=== PATIENT | female | born 2000 | race Hispanic/Latino ===

== ENCOUNTER 2022-03-15 15:24 | Emergency (ER) | payer OTHER, SELFPAY ==
[2022-03-15 15:35] VITALS: BP 123/73; PULSE 90; RESP 16; TEMP 37.3; O2SAT 99
--- NOTE | 2022-03-15 16:09 | ED.URI ---
HPI - URI/Sore Throat General Chief Complaint: Upper Respiratory Infection Stated Complaint: sore throat Time Seen by Provider: 03/15/22 16:09 Source: patient, RN notes reviewed and old records reviewed Mode of arrival: ambulatory Limitations: no limitations History of Present Illness HPI Narrative: 21-year-old female presents to the [facility] with complaints of a sore throat for couple of weeks, worse over the last 3 days. Has used cold medicine but nothing recently. Does not own a thermometer unsure of fevers. Related Data Allergies Allergy/AdvReac Type Severity Reaction Status Date / Time strawberry Allergy Unknown Unknown Unverified 03/15/22 16:04 Review of Systems Review of Systems: All systems reviewed & are unremarkable except as noted in HPI and below Constitutional: Constitutional: Reports no additional constitutional complaints Eyes: Eyes: Reports no additional eye complaints ENT: Reports as per HPI and Reports sore throat Cardiovascular: Cardiovascular: Reports no additional cardiovascular complaints, Denies chest pain and Denies dyspnea Respiratory: Respiratory: Reports no additional respiratory complaints, Denies chest congestion, Denies cough and Denies dyspnea Gastrointestinal: Gastrointestinal: Reports no additional gastrointestinal complaints, Denies abdominal pain, Denies nausea and Denies vomiting Musculoskeletal: Musculoskeletal: Reports no additional musculoskeletal complaints Integumentary/Breasts: Skin/Breast: Reports system reviewed and no additional complaints, except as docu Neurologic: Reports system reviewed and no additional complaints, except as documented Psychiatric: Psychiatric: Reports no additional psychiatric complaints Allergic/Immunologic: Allergic/Immunologic: Reports no additional allergic/immunologic complaints PMFSH Comments At the time of my signature, I reviewed and agree with the nursing past medical, surgical, social, and family history. There is no relevant family history pertinent to the patient complaint. Exam Const: General: cooperative, no acute distress, well developed, alert, ill appearing (mild), poor hygiene, uncomfortable and well nourished Nutritional Appearance: well nourished Orientation/consciousness: patient oriented x3 Limitations: no limitations HENMT: Head: normal to inspection Ears: hearing grossly normal bilaterally and external ears normal Face/Nose/Sinus: Normal external nose present, Normal nares present, Normal nasal mucous membranes and turbinates present and normal facial exam Face and sinus: normal facial exam Mouth: Yes Normal oral and palatal mucosa present, Yes lip normal and Yes moist mucous membranes Throat: uvula midline, abnormal tonsil bilateral erythema, exudates and hypertrophy 2+ and posterior oropharynx abnormal erythema; no edema and no exudates Eyes: General: appearance normal, both eyes and all related structures Alignment and Position: alignment normal Periorbital: periorbital findings normal Conjunctivae: conjunctivae normal Pupils: Equal, round and reactive pupils present EOM: EOMs intact bilaterally Neck: Neck: normal visual inspection, full ROM, no meningeal signs and lymphadenopathy (Bilateral submandibular) Chest: Chest palpation & inspection: normal inspection of the chest Resp: Effort & Inspection: normal respiratory effort and able to speak in complete sentences Auscultation: clear to auscultation bilaterally, no crackles, no rales, no rhonchi and no wheezes Cardio: Rate: regular rate Rhythm: regular rhythm Back/Spine/Pelvis: Cervical Spine: cervical ROM normal Thoracic/Lumbar Spine: No thoracic spinal tenderness Skin: General skin exam: normal color and no rashes or lesions noted Lesions: no lesions Rashes: no rashes Wounds: no wounds Neuro: General: patient oriented x3, gait normal, tone normal, moves all extremities and no meningeal signs Cranial nerves: Yes Equal, round and reactive pupils present
== END 2022-03-15 16:25 | disposition home or self-care (01) ==
PROVIDERS: Emergency Provider Nurse Practitioner
DX: J03.90 Acute tonsillitis, unspecified (principal)
CPT/HCPCS: 87070; 99213; G0463

== ENCOUNTER 2022-10-29 17:53 | Emergency (ER) | payer OTHER, SELFPAY ==
[2022-10-29] VITALS (10 sets, daily range): BP systolic 122–132; BP diastolic 75–84; PULSE 74–94; RESP 15–20; TEMP 36.4; O2SAT 98–100
--- NOTE | ~2022-10-29 | CT_ITS ---
EXAMINATION: CT abdomen pelvis w con DATE: 10/29/2022 19:03 INDICATION: RLQ pain, nausea TECHNIQUE: Computed tomography (CT) of the abdomen and pelvis was performed with 100 mL Omnipaque-350 intravenous contrast. Automated exposure control and iterative reconstruction technique were employe d. The dose-length product was 908.95 mGy-cm. COMPARISON: 08/22/2009. FINDINGS: Lower thorax: Unremarkable Liver: Normal. Biliary/Gallbladder: Gallbladder is normal. No bile duct dilation. Pancreas: No mass or duct dilation. Spleen: Normal. Adrenals:No mass. Kidneys: No mass, stone, or hydronephrosis. GI tract: No small or large bowel dilation. Normal appendix. Mesentery/Peritoneum: No ascites, mass, or free air. Retroperitoneum: No mass. Pelvis: Pelvic organs are within normal limits. Soft Tissues: Soft tissues and body wall unremarkable. Bones: No acute osseous finding. IMPRESSION: No acute abdominopelvic process detected Reviewed, dictated and finalized at location K.
--- NOTE | 2022-10-29 18:10 | ED.ABDPAIN ---
HPI - Abdominal Pain General Chief Complaint: Abdominal Pain Stated Complaint: right side pain Time Seen by Provider: 10/29/22 18:04 History of Present Illness HPI narrative: Patient is a 22-year-old female presenting with abdominal pain. Patient states that she developed right lower quadrant pain approximately 1 week ago. States that it seemed to improve and then it came back several days ago. States that it has progressively worsened. States that now it is coming and going. Associated with nausea and decreased appetite. States that she thinks she has been constipated but she did have a bowel movement this morning. No chest pain or shortness of breath. No fevers or cough. No dysuria, hematuria, vaginal discharge. LMP approximately 2 weeks ago. Denies further complaints. Related Data Allergies Allergy/AdvReac Type Severity Reaction Status Date / Time strawberry Allergy Unknown Unknown Verified 10/29/22 18:05 amoxicillin AdvReac Rash Verified 10/29/22 18:05 red dye AdvReac Rash Verified 10/29/22 18:05 Review of Systems Review of Systems: All systems reviewed & are unremarkable except as noted in HPI and below Exam Narrative: GENERAL: Well-appearing, well-nourished, and in no acute distress. HEAD: Normocephalic, atraumatic. EYES: PERRLA and EOMI. ENT: Nares clear, no rhinorrhea or epistaxis. Mucous membranes moist. NECK: Supple. CHEST: Clear to auscultation. No respiratory distress. HEART: Regular rate and rhythm ABDOMEN: Soft, +RLQ tenderness, no guarding or rebound EXTREMITIES: Normal range of motion. No edema. SKIN: Warm, dry, no rash. NEURO: No focal deficits. Alert and oriented x3. PSYCH: Normal mood and affect. Course Vital Signs Vital signs: Vital Signs Temperature 97.6 F 10/29/22 17:57 Pulse Rate 88 10/29/22 17:57 Respiratory Rate 16 10/29/22 17:57 Blood Pressure 132/84 10/29/22 17:57 Pulse Oximetry 98 10/29/22 17:57 Oxygen Delivery Room Air 10/29/22 17:57 Temperature 97.6 F 10/29/22 17:57 Pulse Rate 78 10/29/22 19:31 Respiratory Rate 16 10/29/22 19:31 Blood Pressure 124/75 10/29/22 19:31 Pulse Oximetry 99 10/29/22 19:31 Oxygen Delivery Room Air 10/29/22 17:57 MDM - Abdominal Pain MDM Narrative Medical decision making narrative: Patient is a 22-year-old female presenting with right lower quadrant pain. Vitals within normal limits. Exam remarkable for the above. Patient is declining pain meds or antiemetics at this time Blood work is unremarkable. UA is unremarkable. CT abdomen pelvis with no acute findings. On reevaluation, the patient is resting comfortably. Feel she is safe for outpatient management. We will get her started on some MiraLAX for the constipation. Advised following up with PCP. Appropriate return precautions given. Patient voiced understanding and is agreeable with plan. Discharged in stable condition. Differential Diagnosis Differential diagnosis: Likely abdominal pain, acute appendicitis, constipation, gastroenteritis and pancreatitis Medical Records Attestation: I reviewed the patient's medical records. Lab Data Attestation: I reviewed the patient's lab results. 10/29/22 18:05 10/29/22 18:05 Labs: Lab Results 10/29/22 10/29/22 Range/Units 18:05 18:18 WBC 9.5 (4.5-10.0) K/mm3 RBC 4.31 (4.2-5.4) M/mm3 Hgb 13.3 (12.0-15.0) g/dL Hct 37.9 (37.0-47.0) % MCV 87.9 (80-100) fl MCH 30.9 (26-34) pg MCHC 35.1 (32-36) g/dl RDW 12.3 (11.5-14.5) % Plt Count 229 (150-375) k/mm3 MPV 10.4 (7.4-10.4) fl Immature Gran % (Auto) 0.3 (0-0.5) % Neut % (Auto) 61.7 (45.5-73.1) % Lymph % (Auto) 28.9 (18.3-44.2) % [place] % (Auto) 6.4 (2.6-8.5) % Eos % (Auto) 2.2 (0-4.4) % Baso % (Auto) 0.5 (0.2-1.2) % Lymph # (Auto) 2.76 (0.9-3.2) K/mm3 [place] # (Auto) 0.6 (0.1-0.6) K/mm3 Eos # (Auto) 0.2 (0-0.3) K/mm3 Baso # (Auto) 0.1 (0.0-0.1)
[2022-10-29 18:11] LABS: Basophils Absolute Auto 0.1 K/mm3 (0.0-0.1); Basophils Percent Auto 0.5 % (0.2-1.2); Eosinophils Absolute Auto 0.2 K/mm3 (0-0.3); Eosinophils Percent Auto 2.2 % (0-4.4); Hematocrit 37.9 % (37.0-47.0); Hemoglobin 13.3 g/dL (12.0-15.0); Immature Granulocyte Absolute 0.03 K/mm3 (0.00-0.031); Immature Granulocyte Percent A 0.3 % (0-0.5); Lymphocytes Absolute Auto 2.76 K/mm3 (0.9-3.2); Lymphocytes Percent Auto 28.9 % (18.3-44.2); Mean Corpuscular HGB Conc 35.1 g/dl (32-36); Mean Corpuscular Hemoglobin 30.9 pg (26-34); Mean Corpuscular Volume 87.9 fl (80-100); Mean Platelet Volume 10.4 fl (7.4-10.4); Monocytes Absolute Auto 0.6 K/mm3 (0.1-0.6); Monocytes Percent Auto 6.4 % (2.6-8.5); Neutrophils Absolute Auto 5.9 K/mm3 (1.3-6.7); Neutrophils Percent Auto 61.7 % (45.5-73.1); Platelet Count Result 229 k/mm3 (150-375); Red Blood Count 4.31 M/mm3 (4.2-5.4); Red Cell Distribution Width 12.3 % (11.5-14.5); White Blood Count 9.5 K/mm3 (4.5-10.0)
[2022-10-29] MEDS: ONDANSETRON INJ 4 MG/2 ML VIAL IV PUSH (18:16)
[2022-10-29] MEDS: LACTATED RINGERS 1,000 ML 999 ML IV CONT (18:16)
[2022-10-29 18:25] LABS: Appearance Urine Clear (Clear); Bilirubin Urine Negative (Negative); Blood Urine Negative (Negative); Color Urine Yellow (Yellow); Glucose Urine UA Negative (Negative); Ketones Urine Negative (Negative); Leukocyte Esterase Ur Negative LEU/UL (Negative); Nitrate Urine Negative (Negative); Protein Urine Negative (Negative); Specific Grav Ur 1.013 (1.001-1.035); Urobilinogen Urine 0.2 mg/dL (<2.0)
[2022-10-29 18:33] LABS: Add Urine Microscopic? NO
[2022-10-29 18:35] LABS: Alanine Aminotransferase 21 U/L (6-35); Albumin Level 4.5 g/dL (3.5-5.1); Alkaline Phosphatase 88 U/L (38-126); Anion Gap 7 mmol/L (8-16); Aspartate Amino Transferase 27 U/L (14-36); Bilirubin,Total 0.4 mg/dL (0.2-1.3); Blood Urea Nitrogen 9 mg/dL (7-17); Carbon Dioxide 29 mmol/L (22-30); Chloride 103 mmol/L (98-107); Estimated CRCL calculation 117 ml/min; Estimated Glomerular Filt Rate > 60; Glucose 98 mg/dL (65-110); Lipase 61 U/L (23-300); Potassium 3.7 mmol/L (3.4-5.0); Sodium 139 mmol/L (137-145)
== END 2022-10-29 20:01 | disposition home or self-care (01) ==
PROVIDERS: Emergency Medicine; Emergency Provider Emergency Medicine
DX: R10.31 Right lower quadrant pain (principal)
CPT/HCPCS: 36415; 74177; 80053; 81003; 81025; 83690; 85025; 96361; 96374; 99284; J2405; J7120; Q9967

== ENCOUNTER 2022-12-01 11:26 | Emergency (ER) | payer OTHER, SELFPAY ==
[2022-12-01 11:42] VITALS: BP 116/67; PULSE 82; RESP 14; TEMP 36.9; O2SAT 100
--- NOTE | 2022-12-01 12:04 | ED.URI ---
HPI - URI/Sore Throat General Chief Complaint: Ear Stated Complaint: both ears painful Time Seen by Provider: 12/01/22 12:00 Source: patient and RN notes reviewed Mode of arrival: ambulatory Limitations: no limitations History of Present Illness HPI Narrative: Patient presents today complaining of rhinorrhea, sore throat, and bilateral ear pain, right greater than left, since yesterday with cough that started today. Hearing is normal. Currently rates her ear pain 2/10 and has been taking Advil with some relief. Related Data Allergies Allergy/AdvReac Type Severity Reaction Status Date / Time strawberry Allergy Unknown Unknown Verified 12/01/22 12:02 amoxicillin AdvReac Rash Verified 12/01/22 12:02 red dye AdvReac Rash Verified 12/01/22 12:02 Review of Systems Review of Systems: CONSTITUTIONAL: Denies body aches, fever, chills, or sweats. EYES: Denies visual changes, redness, or discharge. ENT: + rhinorrhea, congestion, sore throat, bilateral ear pain CARDIOVASCULAR: Denies chest pain, palpitations, or edema. RESPIRATORY: Denies dyspnea.+ cough GASTROINTESTINAL: Denies abdominal pain, nausea, vomiting, or diarrhea. GENITOURINARY: Denies dysuria or hematuria. SKIN: Denies rash, itching, or wounds. MUSCULOSKELETAL: Denies back pain, joint pain, or myalgia. NEUROLOGIC: Denies headache, numbness, tingling, or weakness. PSYCH: Denies depression or anxiety. PMFSH Comments At time of signature, I have reviewed and agree with nursing past medical, surgical, social and family history unless otherwise noted. Please see nursing chart for further information. There is no relevant family history pertinent to the presenting complaint Exam Narrative: GENERAL: Well-appearing, well-nourished, and in no acute distress. HEAD: Normocephalic, atraumatic. EYES: EOMI. No redness or drainage. Conjunctivae normal. ENT: Mucous membranes pink and moist. Nares congested with rhinorrhea. Left TM normal. Right TM erythematous and bulging. Throat normal. Uvula midline. NECK: Normal AROM. Supple. No lymphadenopathy. CHEST: No respiratory distress. Clear to auscultation. HEART: Regular rate and rhythm. No murmur appreciated. Normal peripheral pulses. EXTREMITIES: Normal range of motion. No edema. SKIN: Warm, dry, no rash. Capillary refill normal. Normal skin turgor. NEURO: No focal deficits. Alert and oriented x3. Gait steady. PSYCH: Normal affect. No signs of depression or anxiety. Course Course Level of Care: Express Care Visit Vital Signs Vital signs: Vital Signs Temperature 98.4 F 12/01/22 11:42 Pulse Rate 82 12/01/22 11:42 Respiratory Rate 14 12/01/22 11:42 Blood Pressure 116/67 12/01/22 11:42 Pulse Oximetry 100 12/01/22 11:42 Oxygen Delivery Room Air 12/01/22 11:42 Temperature 98.4 F 12/01/22 11:42 Pulse Rate 82 12/01/22 11:42 Respiratory Rate 14 12/01/22 11:42 Blood Pressure 116/67 12/01/22 11:42 Pulse Oximetry 100 12/01/22 11:42 Oxygen Delivery Room Air 12/01/22 11:42 Reviewed MDM - URI/Sore Throat MDM Narrative Medical decision making narrative: Exam consistent with an upper respiratory infection with right otitis media. Will treat with Omnicef. Discussed [id number] treatment as well. No testing indicated at this time. Anticipatory guidance given. Differential Diagnosis Differential diagnosis: Likely upper respiratory infection, otitis media, viral infection and pharyngitis Critical Care Time Critical Care Time Critical Care Time: No Discharge Plan Discharge Clinical Impression: Acute right otitis media Upper respiratory infection Qualifiers: URI type: unspecified URI Qualified Code(s): J06.9 - Acute upper respiratory infection, unspecified Patient Disposition: Home, Self-Care Condition: Stable Instructions: Antibiotic Form, Ear Infection (GEN), Upper Respiratory Infection (DC) Additional Instructions: You have been diagnosed with
== END 2022-12-01 12:12 | disposition home or self-care (01) ==
PROVIDERS: Emergency Provider Nurse Practitioner
DX: H66.91 Otitis media, unspecified, right ear (principal); J06.9 Acute upper respiratory infection, unspecified
CPT/HCPCS: 99213; G0463

== ENCOUNTER 2024-05-02 13:26 | Emergency (ER) | payer SELFPAY ==
--- NOTE | 2024-05-02 13:34 | ED_ITS ---
HPI - URI/Sore Throat General Chief Complaint: Upper Respiratory Infection Stated Complaint: SOB,cough,bodyaches Source: patient, RN notes reviewed and old records reviewed Mode of arrival: ambulatory Limitations: no limitations History of Present Illness HPI Narrative: Patient presents with complaints of headache, body ache, cough, sore throat. She has not been taking anything for her symptoms. She is not in any distress,. She denies any fever, chills, sweats. She denies any injury Related Data Allergies Allergy/AdvReac Type Severity Reaction Status Date / Time strawberry Allergy Unknown Unknown Verified 05/02/24 14:09 amoxicillin AdvReac Rash Verified 05/02/24 14:09 red dye AdvReac Rash Verified 05/02/24 14:09 Review of Systems Review of Systems: All systems reviewed & are unremarkable except as noted in HPI and below Constitutional: Constitutional: Reports no additional constitutional complaints, Reports body ache(s) and Reports headache(s) ENT: Reports system reviewed and no additional complaints, except as documented and Reports sore throat Cardiovascular: Cardiovascular: Reports no additional cardiovascular complaints Respiratory: Respiratory: Reports no additional respiratory complaints and Reports cough Gastrointestinal: Gastrointestinal: Reports no additional gastrointestinal complaints PMFSH Comments At the time of my signature, I reviewed and agree with the nursing past medical, surgical, social, and family history. There is no relevant family history pertinent to the patient complaint. Exam Const: General: cooperative, no acute distress, alert and awake Orientation/consciousness: oriented to person, oriented to place and oriented to time HENMT: Head: normal to inspection Ears: TM's normal bilaterally Mouth: Yes moist mucous membranes Throat: posterior oropharynx abnormal erythema Resp: Effort & Inspection: normal respiratory effort and able to speak in complete sentences Auscultation: clear to auscultation bilaterally, no crackles, no rales, no rhonchi and no wheezes Cardio: Palpation: normal PMI Rate: regular rate Rhythm: regular rhythm Heart sounds: S1 normal heart sound present and S2 normal heart sound present Neuro: General: oriented to person, oriented to place and oriented to time Cranial nerves: Yes CN's II-XII intact bilaterally Psych: Appearance: grossly normal Thought process: Normal thought process present Insight: Good insight present (Psych) Judgement: Good judgement present (Psych) Course Course Level of Care: Express Care Visit Vital Signs Vital signs: Reviewed MDM - URI/Sore Throat MDM Narrative Medical decision making narrative: Negative COVID, negative flu, negative strep. Culture pending. Reassuring physical exam. Heart rate 90 on auscultation. Symptoms likely viral in origin Differential Diagnosis Differential diagnosis: Likely upper respiratory infection, viral infection, influenza and pharyngitis Medical Records Attestation: I reviewed the patient's medical records. Lab Data Attestation: I reviewed the patient's lab results. Discharge Plan Discharge Clinical Impression: Upper respiratory infection Qualifiers: URI type: unspecified viral URI Qualified Code(s): J06.9 - Acute upper respiratory infection, unspecified Patient Disposition: Home, Self-Care Condition: Stable Instructions: Antibiotic Form, Cold Symptoms (ED) Additional Instructions: Take [id number] medications. Follow with primary care provider. Emergency department for new or worse symptoms Patient Language: Green[place]ic Prescriptions: No Action cefdinir 300 mg capsule 300 mg PO Q12H 7 Days Qty: 14 0RF polyethylene glycol 3350 [Miralax] 17 gram/dose powder 17 g PO DAILY 4 Days Qty: 68 0RF Follow-up/Referrals: PHYSICIAN,[employer] ARCHITECT [Primary Care Provider] - Stand Alone Forms: Work/School Release IP Time of Disposition: 14:29
[2024-05-02 13:35] VITALS: PULSE 125; RESP 18; O2SAT 100
[2024-05-02 13:38] VITALS: BP 121/70; PULSE 111; RESP 16; TEMP 37.4; O2SAT 98
[2024-05-02 14:24] VITALS: PULSE 90; RESP 18; O2SAT 100
[2024-05-02 14:24] LABS: EDCOVIDSCREEN Negative (Negative); EDINFLUASCREEN Negative (Negative); EDINFLUBSCREEN Negative (Negative); EDSTREPNEGPOS1 Negative (Negative)
== END 2024-05-02 14:33 | disposition home or self-care (01) ==
PROVIDERS: Emergency Provider Nurse Practitioner Family
DX: J06.9 Acute upper respiratory infection, unspecified (principal); Z20.822 Contact with and (suspected) exposure to COVID-19
CPT/HCPCS: 87081; 87426; 87804; 87880; 99213; G0463